=== PATIENT | male | born 1950 | race Caucasian/White ===

== ENCOUNTER → 2017-12-15 12:50 | Outpatient (CLI) | payer MEDICARE, BC ==
[2016-01-04 07:33] VITALS: BMI 25.9
[~2017-12-15 12:50] MED LIST: ASPIRIN EC81 M1 PO; BREO ELLIPTA 11 EACH INH; CELEXA40 MG PO; LIPITOR10 MG PO; MULTI-DAY VITAM1 TAB PO; NAPROSYN500 MG PO; NIASPAN500 MG PO; NORVASC5 MG PO; PROAIR HFA8.5 GM INH; RESTORIL15 MG PO; ROBAXIN500 MG PO
== END | disposition home or self-care (01) ==
LOC: D.CT 12:50
DX: K56.699 Other intestinal obstruction unspecified as to partial versus complete obstruction (principal)

== ENCOUNTER 2018-04-04 12:37 | Inpatient (IN) | payer MEDICARE, BC ==
[~2018-04-04] VITALS: Ht 198.1 cm; Wt 91.5 kg
[2018-04-04] VITALS (7 sets, daily range): BP systolic 122–155; BP diastolic 71–84; Ht 198.1 cm; Wt 91.5 kg
[2018-04-04] MEDS ORDERED: DESERYL100 MG PO (12:46)
[2018-04-04] MEDS ORDERED: SINGULAIR10 MG PO (12:46)
[2018-04-04] MEDS ORDERED: PAXIL20 MG PO (12:47)
[2018-04-04 13:26] LABS: BASOPHILS 0.5 % (0-2); EOSINOPHILS 2.7 % (0-7); HEMATOCRIT 41.1 % (42.0-54.0); HEMOGLOBIN 14.1 g/dL (13.5-17.5); LYMPHOCYTES 40.4 % (15-50); MCH 30.7 pg (26.0-34.0); MCHC 34.3 g/dL (31.0-37.0); MCV 89.5 fL (80.0-100.0); MEAN PLATELET VOLUME 10.8 fL (7.4-10.4); MONOCYTES 8.5 % (2-11); NEUTROPHILS 47.9 % (40-80); PLATELET COUNT 186 10x3/uL (130-400); RBC 4.59 10x6/uL (4.20-6.10); RDW 13.4 % (11.5-14.5); WBC 5.9 10x3/uL (4.8-10.8)
[2018-04-04 13:56] LABS: ALBUMIN 4.1 g/dL (3.4-5.0); ALKALINE PHOSPHATASE 68 U/L (46-116); ALT (SGPT) 23 U/L (10-68); BILIRUBIN - TOTAL 0.99 mg/dL (0.2-1.3); CALC OSMOLALITY 277 mosm/kg (275-300); CARBON DIOXIDE 28.2 mmol/L (21.0-32.0); CHLORIDE - SERUM 104 mmol/L (98-107); GLUCOSE 95 mg/dL (74-106); POTASSIUM - SERUM 4.2 mmol/L (3.5-5.1); PROTEIN - SERUM 7.3 g/dL (6.4-8.2); SODIUM 139 mmol/L (136-145); UREA NITROGEN 13 mg/dL (7-18); eGFR NON AFRICAN AMERICAN 79 mL/min (90-120)
[2018-04-04 13:59] LABS: APPEARANCE CLEAR (CLEAR); BILIRUBIN NEGATIVE (NEGATIVE); COLOR YELLOW (YELLOW); GLUCOSE NEGATIVE (NEGATIVE); KETONE NEGATIVE (NEGATIVE); NITRITE NEGATIVE (NEGATIVE); PROTEIN NEGATIVE (NEGATIVE); SPECIFIC GRAVITY 1.005 (1.005-1.020); UROBILINOGEN NORMAL (NORMAL)
[2018-04-05] VITALS: BP 144/78
[2018-04-05 04:00] VITALS: BP 128/62
[2018-04-05 08:00] VITALS: BP 125/88
[2018-04-05 08:44] VITALS: BP 129/50
[2018-04-05 12:36] VITALS: BP 119/81; BP 125/82
[2018-04-05 15:02] LABS: CHOL - HDL RATIO 3.1 ratio (2.3-4.9); LDL-HDL RATIO 1.5 ratio (1.5-3.5)
[2018-04-05 17:45] VITALS: BP 124/81
[2018-04-05 19:09] LABS: CKMB 1.5 U/L (0.0-3.6); CREATINE KINASE 76 UL (21-232); TROPONIN-I < 0.017 ng/mL (0.000-0.060)
[2018-04-05 20:46] LABS: CKMB 1.5 U/L (0.0-3.6); CREATINE KINASE 83 UL (21-232); TROPONIN-I < 0.017 ng/mL (0.000-0.060)
[2018-04-06] VITALS: BP 127/90
[2018-04-06 03:22] LABS: BASOPHILS 0.4 % (0-2); EOSINOPHILS 3.2 % (0-7); HEMATOCRIT 39.6 % (42.0-54.0); HEMOGLOBIN 13.5 g/dL (13.5-17.5); IMMATURE GRANULOCYTES 0.1 % (0-5); LYMPHOCYTES 38.3 % (15-50); MCH 30.3 pg (26.0-34.0); MCHC 34.1 g/dL (31.0-37.0); MCV 88.8 fL (80.0-100.0); MEAN PLATELET VOLUME 10.2 fL (7.4-10.4); MONOCYTES 10.1 % (2-11); NEUTROPHILS 47.9 % (40-80); PLATELET COUNT 174 10x3/uL (130-400); RBC 4.46 10x6/uL (4.20-6.10); RDW 13.3 % (11.5-14.5)
[2018-04-06 03:24] LABS: WBC 7.4 10x3/uL (4.8-10.8)
[2018-04-06 03:46] LABS: ALBUMIN 3.7 g/dL (3.4-5.0); ALKALINE PHOSPHATASE 67 U/L (46-116); ALT (SGPT) 18 U/L (10-68); BILIRUBIN - TOTAL 0.44 mg/dL (0.2-1.3); CALC OSMOLALITY 281 mosm/kg (275-300); CALCIUM 8.6 mg/dL (8.5-10.1); CARBON DIOXIDE 30.6 mmol/L (21.0-32.0); CHLORIDE - SERUM 104 mmol/L (98-107); CKMB 1.4 U/L (0.0-3.6); CREATINE KINASE 74 UL (21-232); CREATININE - SERUM 1.1 mg/dL (0.6-1.3); GLUCOSE 102 mg/dL (74-106); PROTEIN - SERUM 6.8 g/dL (6.4-8.2); SODIUM 141 mmol/L (136-145); TROPONIN-I < 0.017 ng/mL (0.000-0.060); UREA NITROGEN 14 mg/dL (7-18); eGFR NON AFRICAN AMERICAN 70 mL/min (90-120)
[2018-04-06 03:58] LABS: POTASSIUM - SERUM 3.4 mmol/L (3.5-5.1)
[2018-04-06 07:00] VITALS: BP 124/80
[2018-04-06 10:51] VITALS: BP 129/91
[2018-04-06 11:00] VITALS: BP 126/86
[2018-04-06 12:10] LABS: POTASSIUM - SERUM 3.9 mmol/L (3.5-5.1)
[2018-04-06 12:21] LABS: CKMB 1.8 U/L (0.0-3.6)
[2018-04-06 20:00] VITALS: BP 149/93
[2018-04-07] VITALS: BP 90/65
[2018-04-07 04:00] VITALS: BP 110/64
[2018-04-07 06:30] LABS: BASOPHILS 0.5 % (0-2); HEMATOCRIT 39.8 % (42.0-54.0); HEMOGLOBIN 13.5 g/dL (13.5-17.5); LYMPHOCYTES 40.1 % (15-50); MCH 30.3 pg (26.0-34.0); MCHC 33.9 g/dL (31.0-37.0); MCV 89.4 fL (80.0-100.0); MEAN PLATELET VOLUME 10.7 fL (7.4-10.4); MONOCYTES 10.2 % (2-11); NEUTROPHILS 45.2 % (40-80); PLATELET COUNT 163 10x3/uL (130-400); RBC 4.45 10x6/uL (4.20-6.10); RDW 13.5 % (11.5-14.5); WBC 6.4 10x3/uL (4.8-10.8)
[2018-04-07 07:00] LABS: ALBUMIN 3.4 g/dL (3.4-5.0); ALKALINE PHOSPHATASE 61 U/L (46-116); ALT (SGPT) 18 U/L (10-68); BILIRUBIN - TOTAL 0.46 mg/dL (0.2-1.3); CALC OSMOLALITY 281 mosm/kg (275-300); CALCIUM 8.2 mg/dL (8.5-10.1); CARBON DIOXIDE 28.1 mmol/L (21.0-32.0); CHLORIDE - SERUM 107 mmol/L (98-107); GLUCOSE 102 mg/dL (74-106); POTASSIUM - SERUM 3.8 mmol/L (3.5-5.1); PROTEIN - SERUM 6.4 g/dL (6.4-8.2); SODIUM 141 mmol/L (136-145); UREA NITROGEN 14 mg/dL (7-18); eGFR NON AFRICAN AMERICAN 79 mL/min (90-120)
[2018-04-07 09:54] VITALS: BP 107/60
[2018-04-07 11:00] VITALS: BP 119/65
== END 2018-04-07 17:45 | disposition home or self-care (01) | DRG 149 ==
LOC: D.ER 12:37 → D.EDHOLD 14:43 → OBSVTIME 14:44 → D.M2 21:13
PROVIDERS: Family Medicine
DX: R42 Dizziness and giddiness (principal); R40.2363 Coma scale, best motor response, obeys commands, at hospital admission; R40.2143 Coma scale, eyes open, spontaneous, at hospital admission; R40.2253 Coma scale, best verbal response, oriented, at hospital admission; I10 Essential (primary) hypertension; E78.5 Hyperlipidemia, unspecified; I25.10 Atherosclerotic heart disease of native coronary artery without angina pectoris; F43.10 Post-traumatic stress disorder, unspecified; I69.30 Unspecified sequelae of cerebral infarction

== ENCOUNTER 2018-05-31 19:28 | Inpatient (IN) | payer MEDICARE, BC ==
[~2018-05-31] VITALS: Ht 198.1 cm; Wt 102.1 kg
--- NOTE | ~2018-05-31 | EC ---
PATIENT:BÁRBARA PRAJAPATI DATE OF SERVICE: 05/31/18 SEX: M MEDICAL RECORD: [id number] DATE OF : [birth year] LOCATION:D.M2 D.210 AGE OF PATIENT: 68 ADMISSION DATE: 05/31/18 REFERRING PHYSICIAN: INTERPRETING PHYSICIAN: APRIL VILLAFUERTE MD ECHOCARDIOGRAM REPORT ECHO CHARGES 4 ECHO COMPLETE Date: 06/01/18 CLINICAL DIAGNOSIS: HYPOTENSION ECHOCARDIOGRAPHIC MEASUREMENTS (adult normal given) AC root (d.<3.7cm) 3.5 cm LV Septum d (<1.2 cm> 1.3 cm Valve Excursion 1.7 cm LV Septum (systole) 1.5 cm Left Atria (s.<4.0cm> 3.9 cm LVPW d(<1.2cm) 1.4 cm RV (d.<2.3cm) 3.4 cm LVPW (sytole) 1.7 cm LV diastole(<5.6CM) 5.0 cm MV E-F(>70mm/sec) cm LV systole 3.8 cm LVOT Diameter 1.7 cm MV exc.(>10mm) 2.9 cm Est.ejection fraction (50-75%) % DOPPLER: LVIT cm/sec A 77.0 cm/sec E 62.0 cm/sec LA cm/sec RVSP 24 mmHg LVOT 105 cm/sec AOP1/2T m/s Asc. Ao 147 cm/sec RVOT cm/sec RA cm/sec PA cm/sec AV Gradient Peak 8.59 mmHg AV Mean 4.39 mmHg AV Area 1.4 cm MV Gradient Peak 7.36 mmHg MV Mean 1.72 mmHg MV Area cm COMMENTS: Napper Tender: Dedrick ESTEVES Commercial Credit Analyst: 1 Dr. Villafuerte TAPE# PACS Pericardial Effusion N DATE OF SERVICE: 06/01/2018 PROCEDURE: Echocardiogram. FINDINGS: 1. Left ventricular chamber size is within normal limits. Left ventricular systolic function is normal. Overall ejection fraction estimated at 55% to 60%. 2. Left atrium is within normal limits at 3.9 cm. Right atrium and right ventricle chamber sizes are mildly dilated. 3. Valvular structures have normal structure and motion. ECHOCARDIOGRAM REPORT [id number] BÁRBARA PRAJAPATI 4. Doppler interrogation reveals mild tricuspid regurgitation, no other valvular insufficiency or stenosis. Pulmonary systolic pressure is estimated at 24 mmHg. 5. No evidence of pericardial effusion or left ventricular thrombus. TRANSINT:[id number] Voice Confirmation ID: [id number] DOCUMENT ID: [id number] APRIL VILLAFUERTE MD at 1950 CC: [id number] DICTATION DATE: 06/01/18 1544 PHYSICIANS ASSISTANT: 06/01/18 1550 DIS IN 06/03/18 [place] [id number] [place] [id number]
[~2018-05-31 19:28] MED LIST changes: +DESERYL100 MG PO; +PAXIL20 MG PO; +SINGULAIR10 MG PO
[2018-05-31 20:01] VITALS: BP 136/80
[2018-05-31 20:56] VITALS: BP 144/86
[2018-05-31 21:54] VITALS: BP 138/88
[2018-05-31 22:46] VITALS: BP 149/92
[2018-05-31 22:55] LABS: TROPONIN-I < 0.017 ng/mL (0.000-0.060)
[2018-05-31 23:29] VITALS: BP 148/83
[2018-06-01] MEDS ORDERED: GABAPENTIN100 MG PO (00:23)
[2018-06-01] MEDS ORDERED: PLAVIX75 MG PO (00:24)
[2018-06-01 01:17] VITALS: BP 133/92; BMI 26.0
[2018-06-01 04:00] VITALS: BP 134/81
[2018-06-01 08:57] VITALS: BP 134/72
[2018-06-01 10:28] LABS: BASOPHILS 0.3 % (0-2); EOSINOPHILS 1.2 % (0-7); HEMOGLOBIN 14.1 g/dL (13.5-17.5); IMMATURE GRANULOCYTES 0.1 % (0-5); LYMPHOCYTES 13.2 % (15-50); MCHC 34.4 g/dL (31.0-37.0); MCV 90.1 fL (80.0-100.0); MEAN PLATELET VOLUME 10.4 fL (7.4-10.4); MONOCYTES 9.4 % (2-11); NEUTROPHILS 75.8 % (40-80); PLATELET COUNT 176 10x3/uL (130-400); RBC 4.55 10x6/uL (4.20-6.10); RDW 13.4 % (11.5-14.5); WBC 7.6 10x3/uL (4.8-10.8)
[2018-06-01 10:29] LABS: ANION GAP 11.3 mmol/L (8-16); CALCIUM 8.2 mg/dL (8.5-10.1); CARBON DIOXIDE 28.6 mmol/L (21.0-32.0); CREATININE - SERUM 1.2 mg/dL (0.6-1.3); POTASSIUM - SERUM 3.9 mmol/L (3.5-5.1)
[2018-06-01 10:46] VITALS: Ht 198.1 cm; Wt 102.1 kg
[2018-06-01 11:35] VITALS: BP 124/79
[2018-06-01 15:50] VITALS: BP 137/77
[2018-06-01 20:00] VITALS: BP 122/74
[2018-06-02] VITALS (11 sets, daily range): BP systolic 81–123; BP diastolic 46–86
[2018-06-02 05:55] LABS: BASOPHILS 0.3 % (0-2); HEMATOCRIT 39.3 % (42.0-54.0); HEMOGLOBIN 13.6 g/dL (13.5-17.5); IMMATURE GRANULOCYTES 0.2 % (0-5); LYMPHOCYTES 35.6 % (15-50); MCH 31.1 pg (26.0-34.0); MCHC 34.6 g/dL (31.0-37.0); MCV 89.9 fL (80.0-100.0); MEAN PLATELET VOLUME 10.7 fL (7.4-10.4); MONOCYTES 10.5 % (2-11); NEUTROPHILS 50.4 % (40-80); PLATELET COUNT 171 10x3/uL (130-400); RBC 4.37 10x6/uL (4.20-6.10); RDW 13.4 % (11.5-14.5); WBC 6.1 10x3/uL (4.8-10.8)
[2018-06-02 06:14] LABS: ALBUMIN 3.5 g/dL (3.4-5.0); ANION GAP 11.1 mmol/L (8-16); BILIRUBIN - TOTAL 0.5 mg/dL (0.2-1.3); CALCIUM 8.2 mg/dL (8.5-10.1); CARBON DIOXIDE 27.4 mmol/L (21.0-32.0); CREATININE - SERUM 1.1 mg/dL (0.6-1.3); POTASSIUM - SERUM 3.5 mmol/L (3.5-5.1); PROTEIN - SERUM 6.2 g/dL (6.4-8.2)
[2018-06-03 04:00] VITALS: BP 125/65
[2018-06-03 04:17] LABS: BASOPHILS 0.3 % (0-2); EOSINOPHILS 3.3 % (0-7); HEMATOCRIT 37.7 % (42.0-54.0); HEMOGLOBIN 12.8 g/dL (13.5-17.5); LYMPHOCYTES 34.7 % (15-50); MCH 30.3 pg (26.0-34.0); MCV 89.3 fL (80.0-100.0); MEAN PLATELET VOLUME 10.4 fL (7.4-10.4); MONOCYTES 10.8 % (2-11); NEUTROPHILS 50.9 % (40-80); PLATELET COUNT 162 10x3/uL (130-400); RBC 4.22 10x6/uL (4.20-6.10); RDW 13.4 % (11.5-14.5); WBC 6.7 10x3/uL (4.8-10.8)
[2018-06-03 04:50] LABS: ALBUMIN 3.3 g/dL (3.4-5.0); ANION GAP 12.9 mmol/L (8-16); BILIRUBIN - TOTAL 0.41 mg/dL (0.2-1.3); CALCIUM 8.1 mg/dL (8.5-10.1); CARBON DIOXIDE 26.9 mmol/L (21.0-32.0); CREATININE - SERUM 1.1 mg/dL (0.6-1.3); POTASSIUM - SERUM 3.8 mmol/L (3.5-5.1); PROTEIN - SERUM 6.1 g/dL (6.4-8.2)
[2018-06-03 08:19] VITALS: BP 91/67
[2018-06-03 12:18] VITALS: BP 129/76
[2018-06-03] MEDS ORDERED: MIDODRINE HCL5 MG PO (12:24)
[2018-06-03 15:22] VITALS: BP 132/75
== END 2018-06-03 16:16 | disposition home or self-care (01) | DRG 315 ==
LOC: D.ER 19:28 → D.EDHOLD 22:46 → D.M2 22:46 → D.SDCHOLD 06-01 07:41 → D.M2 06-01 07:41 → D.SDCHOLD 06-01 12:01 → D.M2 06-03 16:16
PROVIDERS: Emergency Medicine; Family Medicine; Internal Medicine Interventional Cardiology
DX: I95.9 Hypotension, unspecified (principal); F17.213 Nicotine dependence, cigarettes, with withdrawal; R00.1 Bradycardia, unspecified; I10 Essential (primary) hypertension; E78.5 Hyperlipidemia, unspecified; J44.9 Chronic obstructive pulmonary disease, unspecified; Z86.73 Personal history of transient ischemic attack (TIA), and cerebral infarction without residual deficits

== ENCOUNTER → 2018-07-16 09:58 | Outpatient (CLI) | payer MEDICARE, BC ==
[2018-06-01 10:46] VITALS: BMI 26.0
[~2018-07-16 09:58] MED LIST changes: +GABAPENTIN100 MG PO; +MIDODRINE HCL5 MG PO; +PLAVIX75 MG PO
== END | disposition home or self-care (01) ==
LOC: D.RAD 09:58 → D.RT 11:00
DX: J44.9 Chronic obstructive pulmonary disease, unspecified (principal)

== ENCOUNTER → 2019-02-16 11:59 | Outpatient (CLI) | payer MEDICARE, BC ==
[2018-06-01 10:46] VITALS: BMI 26.0
== END | disposition home or self-care (01) ==
LOC: D.RT 11:59
PROVIDERS: ATTEND Internal Medicine Pulmonary Disease
DX: J44.9 Chronic obstructive pulmonary disease, unspecified (principal)

== ENCOUNTER 2019-07-18 06:46 | Day surgery (SDC) | payer MEDICARE, BC ==
[~2019-07-18] VITALS: Ht 198.1 cm; Wt 102.7 kg
[2019-07-18 07:01] LABS: HEMATOCRIT 44.4 % (42.0-54.0); MCH 30.4 pg (26.0-34.0); MCHC 33.8 g/dL (31.0-37.0); MCV 89.9 fL (80.0-100.0); MEAN PLATELET VOLUME 10.2 fL (7.4-10.4); RBC 4.94 10x6/uL (4.20-6.10); WBC 5.7 10x3/uL (4.8-10.8)
[2019-07-18] MEDS ORDERED: DOXYCYCLINE HY100 M2 PO (07:38)
[2019-07-18] MEDS ORDERED: ZOLOFT25 MG PO (07:38)
[2019-07-18] MEDS ORDERED: MELATONIN5 MG PO (07:39)
[2019-07-18 07:51] VITALS: BP 113/73; Ht 198.1 cm; Wt 102.7 kg
--- NOTE | 2019-07-18 13:02 | NUR ---
1053 DISCHARGE INSTRUCTIONS GIVEN TO PATIENT AND HIS . BOTH VOICE UNDERSTANDING OF INSTRUCTIONS. PERIPHERAL IV DC'D. CATHETER TIP INTACT. PRESSURE HELD UNTIL BLEEDING STOPPED. BANDAID APPLIED. PT STATES HE IS READY TO GO HOME.
--- NOTE | 2019-07-18 15:59 | OP ---
PATIENT NAME: BÁRBARA PRAJAPATI MEDICAL RECORD: [id number] :46 LOCATION:[facility] ADMISSION DATE: SURGEON: KENNEDY GÓMEZ DO DATE OF OPERATION: 07/18/2019 PROCEDURE: Colonoscopy with polypectomy. INDICATIONS FOR PROCEDURE: Occult blood in stools, change in bowel habits, constipation, abnormal weight loss. SCOPE: Olympus video pediatric colonoscope. MEDICATIONS: Propofol 600 mg IV per anesthesia. WITHDRAWAL TIME: 27 minutes. ESTIMATED BLOOD LOSS: Minimal. COMPLICATIONS: None immediate. FINDINGS: Informed consent was given. The patient was made comfortable with the above medication. After reaching an adequate level of sedation by slow IV push, the patient was placed on his left side. A digital rectal examination was performed and was normal. The endoscope was then advanced under direct visualization through the rectum to the cecum, confirmed by the presence of the appendiceal orifice and ileocecal valve. The endoscope was slowly withdrawn. Mucosa was carefully examined. The prep quality was poor and this mainly affected the cecum, ascending colon, and transverse colon. There were multiple polyps visualized on today's examination. The first was located in the cecum. It was a benign appearing sessile polyp, which measured approximately 8-9 mm in diameter. It was removed using a hot snare. In the ascending colon, there were 3 separate polyps. Two were benign-appearing and sessile and ranged in size from 4 mm to 8 mm in diameter. They were both removed using a hot snare in 1 piece and completely retrieved. There was a third polyp, which was larger and measured approximately 1.8 to 2 cm in size. It was removed using EMR technique with an injection of isotonic saline as a pillow, followed by snare polypectomy in 1 piece. In the sigmoid colon, there were 3 separate polyps, which were benign-appearing and sessile. They ranged in size from 3-6 mm in diameter. Two were removed using hot forceps and the third was removed using a hot snare. There was evidence of mild to moderate diverticulosis involving the sigmoid colon. Retroflexion was performed in the rectum with visualization of grade II internal hemorrhoids without bleeding. The endoscope was withdrawn from the patient. The patient tolerated the procedure well and there were no complications. IMPRESSIONS: 1. Multiple polyps as described above, removed using a combination of EMR technique, hot snare, and hot forceps. 2. Mild diverticulosis of the sigmoid colon. 3. Grade II internal hemorrhoids without bleeding. PLAN AND RECOMMENDATIONS: 1. Discharge home when recovery parameters are met. 2. Follow up biopsy specimen results. 3. High fiber diet. OPERATIVE REPORT [id number] BÁRBARA PRAJAPATI 4. Supplement diet with 1 tablespoon of Metamucil daily. 5. If fiber supplementation is not adequate to maintain regular bowel movements, add MiraLax 1 cap daily as needed to facilitate more regular bowel movements. 6. Recall colonoscopy in 2 years based on number and size of polyps removed today. TRANSINT:[id number] Voice Confirmation ID: [id number] DOCUMENT ID: [id number] KENNEDY GÓMEZ DO at 1559 CC: [id number] DICTATION DATE: 07/18/19 0944 SALES ATTENDANT: 07/18/19 1123 [facility] 07/18/19 [address] [place] [address]
== END 2019-07-18 11:04 | disposition home or self-care (01) ==
LOC: D.OPS 06:46
PROVIDERS: Anesthesiology; ATTEND Internal Medicine Gastroenterology
DX: R19.5 Other fecal abnormalities (principal); R19.4 Change in bowel habit; K59.00 Constipation, unspecified; R63.4 Abnormal weight loss; K57.30 Diverticulosis of large intestine without perforation or abscess without bleeding; K64.8 Other hemorrhoids; K63.5 Polyp of colon

== ENCOUNTER 2020-04-26 20:52 | Emergency (ER) | payer MEDICARE, BC ==
[~2020-04-26] VITALS: Ht 198.1 cm; Wt 95.5 kg
[~2020-04-26 20:52] MED LIST changes: +DOXYCYCLINE HY100 M2 PO; +MELATONIN5 MG PO; +ZOLOFT25 MG PO
[2020-04-26 21:00] VITALS: Ht 198.1 cm; Wt 95.5 kg
[2020-04-26 21:23] LABS: HEMATOCRIT 42.2 % (42.0-54.0); HEMOGLOBIN 14.5 g/dL (13.5-17.5); MCH 32.2 pg (26.0-34.0); MCHC 34.4 g/dL (31.0-37.0); MCV 93.6 fL (80.0-100.0); MEAN PLATELET VOLUME 9.7 fL (7.4-10.4); PLATELET COUNT 188 10x3/uL (130-400); RBC 4.51 10x6/uL (4.20-6.10); RDW 13.9 % (11.5-14.5); WBC 10.1 10x3/uL (4.8-10.8)
[2020-04-26 21:34] LABS: CALC OSMOLALITY 280 mosm/kg (275-300); CALCIUM 9.2 mg/dL (8.5-10.1); CARBON DIOXIDE 29.3 mmol/L (21.0-32.0); CHLORIDE - SERUM 104 mmol/L (98-107); CREATININE - SERUM 1.1 mg/dL (0.6-1.3); GLUCOSE 88 mg/dL (74-106); POTASSIUM - SERUM 3.5 mmol/L (3.5-5.1); SODIUM 141 mmol/L (136-145); UREA NITROGEN 16 mg/dL (7-18); eGFR NON AFRICAN AMERICAN 70 mL/min (90-120)
[2020-04-26 21:51] LABS: ALBUMIN 3.9 g/dL (3.4-5.0); ALKALINE PHOSPHATASE 63 U/L (30-120); ALT (SGPT) 32 U/L (10-68); BILIRUBIN - TOTAL 0.35 mg/dL (0.2-1.3); CKMB 2.6 U/L (0.0-3.6); CREATINE KINASE 104 UL (21-232); MAGNESIUM - SERUM 2.5 mg/dL (1.8-2.4); THYROID STIMULATING HORMONE 2.69 uIU/mL (0.36-3.74)
[2020-04-26 21:56] LABS: TROPONIN-I < 0.017 ng/mL (0.000-0.060)
[2020-04-26 22:05] LABS: APTT 25.6 SECONDS (22.8-39.4); INR 0.94 (0.85-1.17); PROTIME 12.6 SECONDS (11.6-15.0)
[2020-04-26 22:13] LABS: EOSINOPHILS 1 % (0-7); LYMPHOCYTES 43 % (15-50); MONOCYTES 10 % (2-11); NEUTROPHILS 46 % (40-80)
[2020-04-26 22:14] LABS: PLATELET ESTIMATE NORMAL
[2020-04-27] VITALS: BP 151/88
== END 2020-04-27 | disposition short-term general hospital (02) ==
LOC: D.ER 20:52
PROVIDERS: Family Medicine
DX: I63.9 Cerebral infarction, unspecified (principal); Z86.73 Personal history of transient ischemic attack (TIA), and cerebral infarction without residual deficits; I10 Essential (primary) hypertension; J45.909 Unspecified asthma, uncomplicated; R53.1 Weakness; R41.0 Disorientation, unspecified

== ENCOUNTER → 2020-06-01 10:12 | Outpatient (CLI) | payer MEDICARE, BC ==
[2020-04-26 21:00] VITALS: BMI 24.3
== END | disposition home or self-care (01) ==
LOC: D.LAB 10:12
PROVIDERS: ATTEND Internal Medicine Pulmonary Disease
DX: Z11.59 Encounter for screening for other viral diseases (principal)

== ENCOUNTER → 2020-06-06 09:36 | Outpatient (CLI) | payer MEDICARE, BC ==
[2020-04-26 21:00] VITALS: BMI 24.3
== END | disposition home or self-care (01) ==
LOC: D.RAD 06-04 09:25 → D.RT 06-04 11:00 → D.RAD 09:36
PROVIDERS: ATTEND Internal Medicine Pulmonary Disease
DX: J45.909 Unspecified asthma, uncomplicated (principal)

== ENCOUNTER 2021-01-06 13:15 | Emergency (ER) | payer MEDICARE, BC ==
[~2021-01-06] VITALS: Ht 198.1 cm; Wt 90.9 kg
[~2021-01-06 13:15] MED LIST changes: +COLCRYS0.6 MG PO; +ELIQUIS5 MG PO; +GABAPENTIN300 MG PO; +HYDROXYCHLOROQ200 MG PO; +LIPITOR40 MG PO; +PROAIR HFA8.5 G1 INH; +TRAZODONE HCL50 MG PO
[2021-01-06 13:22] VITALS: BP 126/108; Ht 198.1 cm; Wt 90.9 kg
[2021-01-06 13:49] LABS: BASOPHILS 0.7 % (0-2); EOSINOPHILS 3.9 % (0-7); HEMATOCRIT 39.7 % (42.0-54.0); HEMOGLOBIN 13.2 g/dL (13.5-17.5); LYMPHOCYTE ABS# 1.53 10x3/uL (1.32-3.57); MCHC 33.2 g/dL (31.0-37.0); MCV 93.2 fL (80.0-100.0); MEAN PLATELET VOLUME 10.5 fL (7.4-10.4); MONOCYTES 9.2 % (2-11); NEUTROPHIL ABS# 2.04 10x3/uL (1.78-5.38); NEUTROPHILS 49.2 % (40-80); PLATELET COUNT 204 10x3/uL (130-400); RBC 4.26 10x6/uL (4.20-6.10); RDW 13.2 % (11.5-14.5); WBC 4.1 10x3/uL (4.8-10.8)
[2021-01-06 13:57] LABS: CALC OSMOLALITY 278 mosm/kg (275-300); CALCIUM 8.7 mg/dL (8.5-10.1); CARBON DIOXIDE 29.8 mmol/L (21.0-32.0); CHLORIDE - SERUM 106 mmol/L (98-107); CREATININE - SERUM 0.9 mg/dL (0.6-1.3); GLUCOSE 94 mg/dL (74-106); POTASSIUM - SERUM 3.6 mmol/L (3.5-5.1); SODIUM 140 mmol/L (136-145); UREA NITROGEN 13 mg/dL (7-18); eGFR NON AFRICAN AMERICAN 88 mL/min (90-120)
[2021-01-06 13:59] LABS: INR 1.2 (0.85-1.17); PROTIME 14.1 SECONDS (11.6-15.0)
[2021-01-06 14:13] LABS: ALBUMIN 3.7 g/dL (3.4-5.0); ALKALINE PHOSPHATASE 62 U/L (30-120); ALT (SGPT) 21 U/L (10-68); BILIRUBIN - TOTAL 0.49 mg/dL (0.2-1.3); CREATINE KINASE 77 UL (21-232); MAGNESIUM - SERUM 2.1 mg/dL (1.8-2.4); PROTEIN - SERUM 6.5 g/dL (6.4-8.2); THYROID STIMULATING HORMONE 1.59 uIU/mL (0.36-3.74); TROPONIN-I < 0.017 ng/mL (0.000-0.060)
[2021-01-06] MEDS ORDERED: CYCLOBENZAPRINE10 MG PO (14:27)
[2021-01-06] MEDS ORDERED: ACETAMINOPHEN500 M1 PO (14:27)
[2021-01-06] MEDS ORDERED: MEDROL DOSE PACK4 MG PO (14:30)
== END 2021-01-06 15:04 | disposition home or self-care (01) ==
LOC: D.ER 13:15
PROVIDERS: Family Medicine
DX: G44.309 Post-traumatic headache, unspecified, not intractable (principal); F07.81 Postconcussional syndrome; Z86.73 Personal history of transient ischemic attack (TIA), and cerebral infarction without residual deficits; I10 Essential (primary) hypertension